=== PATIENT | male | born 2000 | race Caucasian/White ===

== ENCOUNTER 2025-05-02 10:19 | Emergency (ER) | payer OTHER ==
[~2025-05-02] VITALS: Ht 175.3 cm; Wt 61.4 kg
[2025-05-02] MEDS ORDERED: ONDA-282 PO (12:27)
[2025-05-02 12:31] VITALS: BP 119/80; TEMP 97; O2SAT 98
[2025-05-02] MEDS: ONDANSETRON 4MG ORAL DISINTEGRATING TAB PO ONE (12:35)
== END 2025-05-02 12:46 | disposition home or self-care (01) ==
LOC: M ED 10:19
DX: R11.2 Nausea with vomiting, unspecified (principal); R19.7 Diarrhea, unspecified; J30.1 Allergic rhinitis due to pollen

== ENCOUNTER 2025-05-18 10:02 | Emergency (ER) | payer OTHER ==
[~2025-05-18] VITALS: Ht 167.6 cm; Wt 58.7 kg
[~2025-05-18 10:02] MED LIST: ONDA-282 PO
[2025-05-18 11:46] VITALS: BP 119/68; TEMP 98.1; O2SAT 99
== END 2025-05-18 11:47 | disposition home or self-care (01) ==
LOC: M ED 10:02
DX: Z48.02 Encounter for removal of sutures (principal); J30.1 Allergic rhinitis due to pollen